=== PATIENT | male | born 1975 | race Caucasian/White ===

== ENCOUNTER 2017-03-04 12:27 | Emergency (ER) | payer MEDICARE ==
[~2017-03-04] VITALS: Ht 182.8 cm; Wt 79.8 kg
[~2017-03-04 12:27] MED LIST: ALEVE220 MG PO; AMOXICILLIN500 M3 PO; CLARITIN10 MG PO; FLAGYL500 MG PO; FLONASE0.05 MG/AC NS; HYDROCODONE BIT1 T11 PO; KLONOPIN2 MG; MEDROL DOSEPAK4 MG PO; MOTRIN800 MG PO; NORTRIPTYLINE10 MG PO; PEN-VEE K500 MG PO; PENICILLIN VK500 MG PO; PHENERGAN W/DM120 ML PO; PHENERGAN25 M1 PO; PREDNICOT10 MG PO; PRINIVIL10 MG PO; PROAIR HFA0.09 MG/AC INH; RITALIN5 MG PO; SEPTRA DS 800 M1 TAB PO; TOPCARE OMEPRAZ20 MG PO; TRAMADOL HCL50 MG PO; TRIMOX500 MG PO; WELLBUTRIN75 MG PO; ZANTAC150 MG PO
[2017-03-04] MEDS ORDERED: NAPROSYN500 MG PO (14:41)
== END 2017-03-04 15:39 | disposition home or self-care (01) ==
LOC: ED 12:27
DX: M25.551 Pain in right hip (principal)

== ENCOUNTER → 2017-03-14 | Outpatient (CLI) | payer MEDICARE, BC ==
[~2017-03-14] MED LIST changes: +NAPROSYN500 MG PO
[2017-03-14 11:36] LABS: BASO # 0.2 10*3/uL (0.0-0.1); BASO % 1.1 % (0.0-1.0); EOS # 0.2 10*3/uL (0.0-0.4); EOS % 1.5 % (1.0-4.0); HEMATOCRIT 45.4 % (42.0-52.0); HEMOGLOBIN 15.7 g/dl (14.0-18.0); LYMPH # 3.3 10*3/uL (1.3-4.4); LYMPH % 24.1 % (27.0-41.0); MEAN CELL VOLUME 87.6 fl (80.0-94.0); MEAN CORPUSCULAR HGB 30.3 pg (27.0-31.0); MEAN CORPUSCULAR HGB CONC 34.6 g/dl (33.0-37.0); MEAN PLATELET VOLUME 10.8 fl (9.6-12.3); MONO # 0.9 10*3/uL (0.1-1.0); MONO % 6.7 % (3.0-9.0); NEUT # 9.1 10*3/uL (2.3-7.9); NEUT % 66.1 % (47.0-73.0); PLATELET COUNT AUTOMATED 261 10*3/uL (130-400); RED BLOOD COUNT 5.18 10*6/uL (4.50-5.90); RED CELL DISTRI WIDTH 12.9 % (0-14.5); WHITE BLOOD COUNT 13.8 10*3/uL (4.8-10.8)
[2017-03-14 12:00] LABS: ALBUMIN 3.8 gm/dl (3.1-4.5); ALKALINE PHOSPHATASE 68 U/L (45-117); BUN 16 mg/dl (7-24); CHLORIDE 107 mmol/L (98-107); CREATININE 0.99 mg/dL (0.70-1.30); POTASSIUM 3.7 mmol/L (3.5-5.1); SGOT/AST 10 IU/L (3-35); SGPT/ALT 23 U/L (12-78); SODIUM 141 mmol/L (136-145); TOTAL PROTEIN 7.1 gm/dL (6.4-8.2)
== END ==
LOC: LAB 11:12
PROVIDERS: Nurse Practitioner Family
DX: E04.9 Nontoxic goiter, unspecified (principal); F17.200 Nicotine dependence, unspecified, uncomplicated

== ENCOUNTER → 2017-03-18 | Outpatient (CLI) | payer MEDICARE, BC | LOC: US 04:24 | DX: E04.1 Nontoxic single thyroid nodule (principal); F17.200 Nicotine dependence, unspecified, uncomplicated ==

== ENCOUNTER 2017-10-31 14:22 | Emergency (ER) | payer OTHER ==
[~2017-10-31] VITALS: Ht 180.3 cm; Wt 81.6 kg
== END 2017-10-31 17:05 | disposition home or self-care (01) ==
LOC: ED 14:22
DX: M25.561 Pain in right knee (principal); Z79.899 Other long term (current) drug therapy

== ENCOUNTER → 2018-04-14 | Outpatient (CLI) | payer OTHER ==
[2018-04-14 08:55] LABS: BASO # 0.2 10*3/uL (0.0-0.1); BASO % 1.4 % (0.0-1.0); EOS % 8.4 % (1.0-4.0); HEMATOCRIT 46.9 % (42.0-52.0); HEMOGLOBIN 16.3 g/dl (14.0-18.0); LYMPH # 2.2 10*3/uL (1.3-4.4); LYMPH % 18.5 % (27.0-41.0); MEAN CELL VOLUME 86.9 fl (80.0-94.0); MEAN CORPUSCULAR HGB 30.2 pg (27.0-31.0); MEAN CORPUSCULAR HGB CONC 34.8 g/dl (33.0-37.0); NEUT # 7.6 10*3/uL (2.3-7.9); NEUT % 63.4 % (47.0-73.0); PLATELET COUNT AUTOMATED 291 10*3/uL (130-400); RED CELL DISTRI WIDTH 12.5 % (0-14.5)
[2018-04-14 09:26] LABS: CHLORIDE 105 mmol/L (98-107); SODIUM 138 mmol/L (136-145)
[2018-04-14 09:33] LABS: ALBUMIN 4.2 gm/dl (3.1-4.5); ALKALINE PHOSPHATASE 75 U/L (45-117); BUN 15 mg/dl (7-24); CHOLESTEROL 184 mg/dL (<200); CREATININE 1.04 mg/dL (0.70-1.30); HDL CHOLESTEROL 37 mg/dl (40-60); LDL CHOLESTEROL 103 mg/dL (9-159); SGOT/AST 15 IU/L (3-35); SGPT/ALT 23 U/L (12-78); TOTAL PROTEIN 7.7 gm/dL (6.4-8.2); TRIGLYCERIDES 220 mg/dl (<150); VLDL CHOLESTEROL 44 mg/dL (6-40)
== END | disposition home or self-care (01) ==
LOC: LAB 08:04
PROVIDERS: Nurse Practitioner Family
DX: Z13.220 Encounter for screening for lipoid disorders (principal); F41.1 Generalized anxiety disorder; J45.909 Unspecified asthma, uncomplicated; K21.9 Gastro-esophageal reflux disease without esophagitis; Z79.899 Other long term (current) drug therapy

== ENCOUNTER 2019-02-07 15:29 | Emergency (ER) | payer BC ==
[~2019-02-07] VITALS: Ht 180.3 cm; Wt 83.9 kg
[2019-02-07 16:06] LABS: BASO # 0.1 10*3/uL (0.0-0.1); BASO % 0.7 % (0.0-1.0); EOS # 0.2 10*3/uL (0.0-0.4); EOS % 2.2 % (1.0-4.0); HEMATOCRIT 42.9 % (42.0-52.0); HEMOGLOBIN 14.8 g/dl (14.0-18.0); LYMPH # 1.8 10*3/uL (1.3-4.4); LYMPH % 23.1 % (27.0-41.0); MEAN CELL VOLUME 86.3 fl (80.0-94.0); MEAN CORPUSCULAR HGB 29.8 pg (27.0-31.0); MEAN CORPUSCULAR HGB CONC 34.5 g/dl (33.0-37.0); MEAN PLATELET VOLUME 10.5 fl (9.6-12.3); MONO # 0.3 10*3/uL (0.1-1.0); MONO % 4.4 % (3.0-9.0); NEUT # 5.2 10*3/uL (2.3-7.9); NEUT % 69.2 % (47.0-73.0); PLATELET COUNT AUTOMATED 307 10*3/uL (130-400); RED BLOOD COUNT 4.97 10*6/uL (4.50-5.90); RED CELL DISTRI WIDTH 12.5 % (0-14.5); WHITE BLOOD COUNT 7.6 10*3/uL (4.8-10.8)
[2019-02-07 16:17] LABS: ACT PARTIAL THROMBO TIME 29.5 SECONDS (20.0-32.1)
[2019-02-07 16:20] LABS: ALBUMIN 3.9 gm/dl (3.1-4.5); ALKALINE PHOSPHATASE 89 U/L (45-117); BUN 15 mg/dl (7-24); CHLORIDE 106 mmol/L (98-107); CREATININE 1.09 mg/dL (0.70-1.30); LIPASE 101 U/L (73-393); POTASSIUM 3.4 mmol/L (3.5-5.1); SGOT/AST 11 IU/L (3-35); SGPT/ALT 29 U/L (12-78); SODIUM 137 mmol/L (136-145); TOTAL PROTEIN 7.4 gm/dL (6.4-8.2)
[2019-02-07 16:26] LABS: TROPONIN I < 0.015 ng/ml (<0.045)
== END 2019-02-07 19:55 | disposition left against medical advice (07) ==
LOC: ED 15:29
PROVIDERS: Emergency Medicine
DX: R42 Dizziness and giddiness (principal); J34.89 Other specified disorders of nose and nasal sinuses; R23.2 Flushing; R79.1 Abnormal coagulation profile

== ENCOUNTER → 2019-10-08 | Outpatient (CLI) | payer BC | END | disposition home or self-care (01) | LOC: LAB 08:36 | PROVIDERS: Nurse Practitioner Family | DX: R19.7 Diarrhea, unspecified (principal) ==

== ENCOUNTER 2019-11-27 11:06 | Emergency (ER) | payer BC ==
[~2019-11-27] VITALS: Ht 180.3 cm; Wt 81.6 kg
[2019-11-27 12:34] LABS: BASO # 0.1 10*3/uL (0.0-0.1); BASO % 1.2 % (0.0-1.0); EOS # 0.2 10*3/uL (0.0-0.4); EOS % 3.1 % (1.0-4.0); HEMATOCRIT 44.2 % (42.0-52.0); LYMPH # 1.7 10*3/uL (1.3-4.4); MEAN CELL VOLUME 87.7 fl (80.0-94.0); MEAN CORPUSCULAR HGB 30.2 pg (27.0-31.0); MEAN CORPUSCULAR HGB CONC 34.4 g/dl (33.0-37.0); MONO # 0.6 10*3/uL (0.1-1.0); MONO % 7.4 % (3.0-9.0); NEUT # 5.1 10*3/uL (2.3-7.9); NEUT % 65.9 % (47.0-73.0); PLATELET COUNT AUTOMATED 282 10*3/uL (130-400); RED BLOOD COUNT 5.04 10*6/uL (4.50-5.90); RED CELL DISTRI WIDTH 12.8 % (0-14.5); WHITE BLOOD COUNT 7.7 10*3/uL (4.8-10.8)
[2019-11-27 12:48] LABS: ALBUMIN 3.8 gm/dl (3.1-4.5); ALKALINE PHOSPHATASE 65 U/L (45-117); BUN 16 mg/dl (7-24); CHLORIDE 112 mmol/L (98-107); CREATININE 0.91 mg/dL (0.70-1.30); POTASSIUM 4.1 mmol/L (3.5-5.1); SGOT/AST 10 IU/L (3-35); SGPT/ALT 21 U/L (12-78); SODIUM 141 mmol/L (136-145); TOTAL PROTEIN 7.3 gm/dL (6.4-8.2)
== END 2019-11-27 13:26 | disposition home or self-care (01) ==
LOC: ED 11:06
PROVIDERS: Emergency Medicine
DX: K92.2 Gastrointestinal hemorrhage, unspecified (principal); F17.200 Nicotine dependence, unspecified, uncomplicated

== ENCOUNTER → 2020-08-18 | Outpatient (CLI) | payer BC | END | disposition home or self-care (01) | LOC: RAD 10:03 | PROVIDERS: ATTEND Nurse Practitioner Family | DX: M25.511 Pain in right shoulder (principal) ==

== ENCOUNTER → 2022-07-04 | Outpatient (CLI) | payer BC ==
[2022-07-04 09:53] LABS: BASO # 0.1 10*3/uL (0.0-0.1); BASO % 1.3 % (0.0-1.0); EOS # 0.4 10*3/uL (0.0-0.4); EOS % 4.6 % (1.0-4.0); HEMATOCRIT 47.3 % (42.0-52.0); LYMPH # 1.9 10*3/uL (1.3-4.4); LYMPH % 21.4 % (27.0-41.0); MEAN CELL VOLUME 86.8 fl (80.0-94.0); MEAN CORPUSCULAR HGB 29.7 pg (27.0-31.0); MEAN CORPUSCULAR HGB CONC 34.2 g/dl (33.0-37.0); MEAN PLATELET VOLUME 11.1 fl (9.6-12.3); MONO # 0.7 10*3/uL (0.1-1.0); MONO % 7.4 % (3.0-9.0); NEUT # 5.8 10*3/uL (2.3-7.9); NEUT % 64.9 % (47.0-73.0); PLATELET COUNT AUTOMATED 282 10*3/uL (130-400); RED BLOOD COUNT 5.45 10*6/uL (4.50-5.90); RED CELL DISTRI WIDTH 12.3 % (0-14.5); WHITE BLOOD COUNT 8.9 10*3/uL (4.8-10.8)
[2022-07-04 10:03] LABS: ALKALINE PHOSPHATASE 76 U/L (46-116); BUN 13 mg/dl (9-23); CHLORIDE 103 mmol/L (98-107); POTASSIUM 4.2 mmol/L (3.4-5.1); SGPT/ALT 24 U/L (10-49); TOTAL PROTEIN 7.4 gm/dL (6.0-8.0)
== END | disposition home or self-care (01) ==
LOC: LAB 09:06
PROVIDERS: ATTEND Physical Therapist
DX: R53.83 Other fatigue (principal); R73.9 Hyperglycemia, unspecified; K90.0 Celiac disease

== ENCOUNTER → 2022-08-11 | Day surgery (SDC) | payer BC ==
[~2022-08-11] VITALS: Ht 180.3 cm; Wt 90.7 kg
[~2022-08-11] MED LIST changes: +CHOLESTYRAMINE P4 GM PO
[2022-08-11 10:30] VITALS: BP 123/65
[2022-08-11 11:46] VITALS: BP 100/67
[2022-08-11 12:01] VITALS: BP 102/69
[2022-08-11 12:15] VITALS: BP 104/70
== END | disposition home or self-care (01) ==
LOC: SDC 08-07 13:15
PROVIDERS: ATTEND Surgery
DX: R19.7 Diarrhea, unspecified (principal); K29.50 Unspecified chronic gastritis without bleeding; K44.9 Diaphragmatic hernia without obstruction or gangrene; I10 Essential (primary) hypertension; J45.909 Unspecified asthma, uncomplicated; K21.9 Gastro-esophageal reflux disease without esophagitis; F41.9 Anxiety disorder, unspecified; F32.A Depression, unspecified; F17.290 Nicotine dependence, other tobacco product, uncomplicated; Z79.899 Other long term (current) drug therapy

== ENCOUNTER 2022-09-11 03:35 | Emergency (ER) | payer BC ==
[~2022-09-11] VITALS: Ht 175.2 cm; Wt 90.7 kg
[2022-09-11] MEDS ORDERED: OMEPRAZOLE40 MG PO (03:40)
[2022-09-11 04:01] LABS: BASO # 0.1 10*3/uL (0.0-0.1); BASO % 1.3 % (0.0-1.0); EOS # 0.5 10*3/uL (0.0-0.4); EOS % 5.3 % (1.0-4.0); HEMATOCRIT 46.6 % (42.0-52.0); LYMPH # 2.4 10*3/uL (1.3-4.4); LYMPH % 28.4 % (27.0-41.0); MEAN CELL VOLUME 86.3 fl (80.0-94.0); MEAN CORPUSCULAR HGB CONC 34.8 g/dl (33.0-37.0); MEAN PLATELET VOLUME 10.6 fl (9.6-12.3); MONO # 0.9 10*3/uL (0.1-1.0); NEUT # 4.6 10*3/uL (2.3-7.9); NEUT % 54.8 % (47.0-73.0); PLATELET COUNT AUTOMATED 286 10*3/uL (130-400); RED CELL DISTRI WIDTH 12.3 % (0-14.5); WHITE BLOOD COUNT 8.5 10*3/uL (4.8-10.8)
[2022-09-11 04:15] LABS: BUN 13 mg/dl (9-23); CHLORIDE 106 mmol/L (98-107); POTASSIUM 4.2 mmol/L (3.4-5.1)
[2022-09-11] MEDS ORDERED: ONDANSETRON4 MG SL (04:30)
[2022-09-11] MEDS ORDERED: FLOMAX0.4 MG PO (04:30)
[2022-09-11] MEDS ORDERED: HYDROCODONE-AC1 EAC1 PO (04:30)
== END 2022-09-11 04:58 | disposition home or self-care (01) ==
LOC: ED 03:35
PROVIDERS: Internal Medicine
DX: N13.2 Hydronephrosis with renal and ureteral calculous obstruction (principal); Z79.899 Other long term (current) drug therapy

== ENCOUNTER → 2023-03-06 | Outpatient (CLI) | payer BC ==
[~2023-03-06] MED LIST changes: +FLOMAX0.4 MG PO; +HYDROCODONE-AC1 EAC1 PO; +OMEPRAZOLE40 MG PO; +ONDANSETRON4 MG SL
[2023-03-06 09:21] LABS: BASO # 0.1 10*3/uL (0.0-0.1); BASO % 1.1 % (0.0-1.0); EOS # 0.3 10*3/uL (0.0-0.4); EOS % 3.7 % (1.0-4.0); HEMATOCRIT 47.6 % (42.0-52.0); LYMPH # 1.8 10*3/uL (1.3-4.4); LYMPH % 23.1 % (27.0-41.0); MEAN CORPUSCULAR HGB 29.9 pg (27.0-31.0); MEAN PLATELET VOLUME 10.5 fl (9.6-12.3); MONO # 0.5 10*3/uL (0.1-1.0); MONO % 6.9 % (3.0-9.0); NEUT # 4.9 10*3/uL (2.3-7.9); NEUT % 64.9 % (47.0-73.0); PLATELET COUNT AUTOMATED 268 10*3/uL (130-400); RED BLOOD COUNT 5.41 10*6/uL (4.50-5.90); RED CELL DISTRI WIDTH 12.4 % (0-14.5); WHITE BLOOD COUNT 7.6 10*3/uL (4.8-10.8)
[2023-03-06 09:47] LABS: ALKALINE PHOSPHATASE 71 U/L (46-116); BUN 11 mg/dl (9-23); CHLORIDE 109 mmol/L (98-107); CHOLESTEROL 176 mg/dL (<200); FREE T4 1.26 ng/dl (0.89-1.76); LDL CHOLESTEROL 109 mg/dL (9-159); POTASSIUM 4.5 mmol/L (3.4-5.1); SGPT/ALT 25 U/L (5-49); TOTAL PROTEIN 7.1 gm/dL (6.0-8.0); TRIGLYCERIDES 138 mg/dl (<150)
== END | disposition home or self-care (01) ==
LOC: LAB 08:41
PROVIDERS: ATTEND Internal Medicine
DX: K21.9 Gastro-esophageal reflux disease without esophagitis (principal)

== ENCOUNTER → 2023-03-07 | Outpatient (CLI) | payer BC | END | disposition home or self-care (01) | LOC: LAB 08:39 | PROVIDERS: ATTEND Internal Medicine | DX: R53.83 Other fatigue (principal) ==

== ENCOUNTER → 2023-09-04 | Outpatient (CLI) | payer BC | END | disposition home or self-care (01) | LOC: RAD 09:30 | PROVIDERS: ATTEND Internal Medicine | DX: M25.561 Pain in right knee (principal); M25.562 Pain in left knee ==

== ENCOUNTER → 2023-12-18 | Outpatient (CLI) | payer BC ==
[2023-12-18 13:25] LABS: BASO # 0.1 10*3/uL (0.0-0.1); EOS # 0.4 10*3/uL (0.0-0.4); HEMATOCRIT 47.4 % (42.0-52.0); LYMPH # 2.2 10*3/uL (1.3-4.4); MEAN CELL VOLUME 85.1 fl (80.0-94.0); MEAN CORPUSCULAR HGB CONC 35.2 g/dl (33.0-37.0); MEAN PLATELET VOLUME 10.5 fl (9.6-12.3); MONO # 0.8 10*3/uL (0.1-1.0); MONO % 7.4 % (3.0-9.0); NEUT # 7.2 10*3/uL (2.3-7.9); NEUT % 66.9 % (47.0-73.0); PLATELET COUNT AUTOMATED 254 10*3/uL (130-400); RED BLOOD COUNT 5.57 10*6/uL (4.50-5.90); RED CELL DISTRI WIDTH 12.8 % (0-14.5); WHITE BLOOD COUNT 10.8 10*3/uL (4.8-10.8)
[2023-12-18 13:49] LABS: ALKALINE PHOSPHATASE 67 U/L (46-116); BUN 13 mg/dl (9-23); CHLORIDE 107 mmol/L (98-107); POTASSIUM 3.9 mmol/L (3.4-5.1); SGPT/ALT 16 U/L (5-49); TOTAL PROTEIN 6.9 gm/dL (6.0-8.0)
== END | disposition home or self-care (01) ==
LOC: LAB 13:07
PROVIDERS: ATTEND Podiatrist Foot & Ankle Surgery
DX: B35.1 Tinea unguium (principal)

== ENCOUNTER → 2024-02-05 | Outpatient (CLI) | payer BC ==
[2024-02-05 07:50] LABS: BASO # 0.1 10*3/uL (0.0-0.1); BASO % 0.9 % (0.0-1.0); EOS # 0.3 10*3/uL (0.0-0.4); HEMATOCRIT 49.8 % (42.0-52.0); LYMPH # 1.6 10*3/uL (1.3-4.4); LYMPH % 16.4 % (27.0-41.0); MEAN CELL VOLUME 87.5 fl (80.0-94.0); MEAN CORPUSCULAR HGB 29.3 pg (27.0-31.0); MEAN CORPUSCULAR HGB CONC 33.5 g/dl (33.0-37.0); MEAN PLATELET VOLUME 10.4 fl (9.6-12.3); MONO # 0.6 10*3/uL (0.1-1.0); MONO % 6.3 % (3.0-9.0); NEUT # 6.9 10*3/uL (2.3-7.9); NEUT % 72.9 % (47.0-73.0); PLATELET COUNT AUTOMATED 268 10*3/uL (130-400); RED BLOOD COUNT 5.69 10*6/uL (4.50-5.90); RED CELL DISTRI WIDTH 12.5 % (0-14.5); WHITE BLOOD COUNT 9.5 10*3/uL (4.8-10.8)
[2024-02-05 08:11] LABS: ALKALINE PHOSPHATASE 68 U/L (46-116); BUN 11 mg/dl (9-23); CHLORIDE 106 mmol/L (98-107); POTASSIUM 4.1 mmol/L (3.4-5.1); SGPT/ALT 20 U/L (5-49)
== END | disposition home or self-care (01) ==
LOC: LAB 07:37
PROVIDERS: ATTEND Podiatrist Foot & Ankle Surgery
DX: B35.1 Tinea unguium (principal)

== ENCOUNTER → 2024-03-28 | Day surgery (SDC) | payer BC ==
[2024-03-28] VITALS (7 sets, daily range): BP systolic 118–141; BP diastolic 76–94
[~2024-03-28] VITALS: Ht 182.8 cm; Wt 88.5 kg
[~2024-03-28] MED LIST changes: +ACETAMINOPHEN 100 ML IV ONE; +AIRSUPRA 90-810.7 GM IH; +BUPIVACAINE 0.5% 10 ML VIAL ONE; +CO Q10100 MG PO; +COLACE100 MG PO; +DEXMEDETOMIDINE HCL 200 MCG/2 ML VIAL IV ONE; +Dexamethasone Sodium Phospha 4 MG/ML VIAL IV ONE; +Esmolol Hydrochloride 100 MG/10 ML VIAL IV ONE; +HYDROmorphONE Hydrochloride 0.5 MG/0.5 ML SYRINGE IV PRN; +HYDROmorphONE Hydrochloride 0.5 MG/0.5 ML SYRINGE ONE; +Ketamine Hydrochloride 500 MG/10 ML VIAL IV ONE; +Lactated Ringer's Solution 1,000 ML IV ONE; +Lidocaine Hydrochloride 2% 5 ML SDV IV ONE; +MAGNESIUM SULFATE 1 GM/2 ML VIAL IV ONE; +Ondansetron Hydrochloride 4 MG/2 ML VIAL IV ONE; +PERCOCET 5-3251 EACH PO; +PROPOFOL 200 MG/20 ML VIAL IV ONE; +ROCURONIUM BROMIDE 50 MG/5 ML SYRINGE IV ONE; +SEVOFLURANE 250 ML BOT INH ONE; +SUGAMMADEX SODIUM 200 MG/2 ML VIAL IV ONE; +Scopolamine 1 PATCH PATCH T ONE; +ceFAZolin sodium 2GM/20ML IV ONE; +ceFAZolin sodium/sodium chlor 20 ML IV ONE; +fentaNYL CITRATE 100 MCG/2 ML VIAL IV ONE
== END | disposition home or self-care (01) ==
LOC: SDC 03-24 09:30
PROVIDERS: ATTEND Surgery
DX: K40.90 Unilateral inguinal hernia, without obstruction or gangrene, not specified as recurrent (principal); I10 Essential (primary) hypertension; J45.909 Unspecified asthma, uncomplicated; K21.9 Gastro-esophageal reflux disease without esophagitis; F32.A Depression, unspecified; F17.210 Nicotine dependence, cigarettes, uncomplicated; F12.90 Cannabis use, unspecified, uncomplicated; Z79.899 Other long term (current) drug therapy; Z98.890 Other specified postprocedural states

== ENCOUNTER → 2025-01-04 | Outpatient (CLI) | payer BC ==
[~2025-01-04] MED LIST changes: -ACETAMINOPHEN 100 ML IV ONE; -BUPIVACAINE 0.5% 10 ML VIAL ONE; -DEXMEDETOMIDINE HCL 200 MCG/2 ML VIAL IV ONE; -Dexamethasone Sodium Phospha 4 MG/ML VIAL IV ONE; -Esmolol Hydrochloride 100 MG/10 ML VIAL IV ONE; -HYDROmorphONE Hydrochloride 0.5 MG/0.5 ML SYRINGE IV PRN; -HYDROmorphONE Hydrochloride 0.5 MG/0.5 ML SYRINGE ONE; -Ketamine Hydrochloride 500 MG/10 ML VIAL IV ONE; -Lactated Ringer's Solution 1,000 ML IV ONE; -Lidocaine Hydrochloride 2% 5 ML SDV IV ONE; -MAGNESIUM SULFATE 1 GM/2 ML VIAL IV ONE; -Ondansetron Hydrochloride 4 MG/2 ML VIAL IV ONE; -PROPOFOL 200 MG/20 ML VIAL IV ONE; -ROCURONIUM BROMIDE 50 MG/5 ML SYRINGE IV ONE; -SEVOFLURANE 250 ML BOT INH ONE; -SUGAMMADEX SODIUM 200 MG/2 ML VIAL IV ONE; -Scopolamine 1 PATCH PATCH T ONE; -ceFAZolin sodium 2GM/20ML IV ONE; -ceFAZolin sodium/sodium chlor 20 ML IV ONE; -fentaNYL CITRATE 100 MCG/2 ML VIAL IV ONE
[2025-01-04 12:13] LABS: BASO # 0.1 10*3/uL (0.0-0.1); BASO % 0.9 % (0.0-1.0); EOS # 0.2 10*3/uL (0.0-0.4); EOS % 2.6 % (1.0-4.0); MEAN CELL VOLUME 88.3 fl (80.0-94.0); MEAN CORPUSCULAR HGB 29.4 pg (27.0-31.0); MEAN PLATELET VOLUME 10.6 fl (9.6-12.3); MONO # 0.6 10*3/uL (0.1-1.0); MONO % 7.1 % (3.0-9.0); NEUT # 6.1 10*3/uL (2.3-7.9); NEUT % 68.5 % (47.0-73.0); NUCLEATED RED BLOOD CELL 0.0 % (0.0-0.0); NUCLEATED RED BLOOD CELL 0.0 10*3/uL (0.0-0.0); PLATELET COUNT AUTOMATED 246 10*3/uL (130-400); RED CELL DISTRI WIDTH 12.6 % (0-14.5)
[2025-01-04 12:38] LABS: BUN 12 mg/dl (9-23); SGPT/ALT 15 U/L (5-49)
[2025-01-04 12:40] LABS: VITAMIN D, 25-HYDROXY 50.1 ng/mL (30-100)
== END ==
LOC: LAB 11:03
PROVIDERS: ATTEND Nurse Practitioner Family
DX: K90.0 Celiac disease (principal)